=== PATIENT | male | born 1935 | race Caucasian/White ===

== ENCOUNTER 2019-08-03 09:45 | Inpatient (IN) ==
[2019-08-03] MEDS ORDERED: ASPIRIN 325 MG TABLET PO STA (10:26)
[2019-08-03] MEDS ORDERED: ALUM/MAG/SIMETH/LIDO VISC 1:1 30 ML BOTTLE PO STA (10:26)
[2019-08-03 10:31] LABS: Basophils % 0.5 % (0.0-0.8); Eosinophils # 0.2 10*3/uL (0.0-0.87); Eosinophils % 4.4 % (0.00-10.9); Hematocrit 35.2 VOL% (42.0-52.0); Hemoglobin 11.5 GM/DL (14.0-18.0); Immature Granulocytes % 1.1 %; Immature Granulocytes Absolute 0.04 #; Lymphocytes # 0.1 10*3/uL (1.4-4.0); Lymphocytes % 2.5 % (21.2-54.2); Mean Corpuscular HGB Conc 32.7 GM/DL (32-36); Mean Corpuscular Volume 90.5 FL (87-102); Mean Platelet Volume 10.3 FL (9.6-12.0); Monocytes % 1.4 % (1.7-12.7); Neutrophils % 90.1 % (38.7-73.9); Platelet Count 118 T/CUMM (130-400); Red Blood Count 3.89 MC/CUMM (3.8-5.5); Red Cell Distribution Width 17.3 % (9.3-17.3); White Blood Count 3.7 T/CUMM (4-12)
[2019-08-03 10:39] LABS: Partial Thromboplastin Time 25.4 SECS (20.8-36.0)
[2019-08-03 10:46] LABS: Albumin 2.7 G/DL (3.4-5.0); Calcium 7.7 MG/DL (8.5-10.1); Osmolality,Calculated 273.1 MOS/KG (273-304); Total Protein 5.2 G/DL (6.4-8.3)
[2019-08-03 10:49] LABS: Band Neutrophils 1 % (0-10); Eosinophils 4 % (0-10); Hypochromasia 1+; Lymphocytes 2 % (20-55); Ovalocytes Slight; Platelet Estimate Decreased; Segmented Neutrophils 91 % (50-85); Total Cells Counted 100
[2019-08-03 10:50] LABS: Macrocytosis Slight
[2019-08-03] MEDS ORDERED: ENOXAPARIN 100 MG/ML SYRINGE SUBCUT STA (10:51)
[2019-08-03] MEDS ORDERED: NITROGLYCERIN 2% OINT 1 INCH/GM PACK TOP STA (10:52)
[2019-08-03] MEDS ORDERED: SODIUM CHLORIDE 0.9% 500 ML IV STA (11:42)
[2019-08-03] MEDS ORDERED: ALBUTEROL 2.5 MG/3 ML NEB RESP TX PRN (11:53)
[2019-08-03] MEDS ORDERED: MECLIZINE 25 MG TABLET PO PRN (11:53)
[2019-08-03] MEDS: NITROGLYCERIN 2% OINT 1 INCH/GM PACK TOP SCH ×3 (15:04→23:47)
[2019-08-03] MEDS ORDERED: ALUM/MAG/SIMETH/LIDO VISC 1:1 30 ML BOTTLE PO ONE ×2 (17:53→22:30)
[2019-08-03] MEDS ORDERED: MORPHINE 4 MG/1 ML VIAL IV PRN (17:53)
[2019-08-03] MEDS: THEOPHYLLINE ER 300 MG TABLET PO SCH (20:50)
[2019-08-03] MEDS: ROSUVASTATIN 20 MG TABLET PO SCH (20:50)
[2019-08-03] MEDS ORDERED: ONDANSETRON 4 MG/2 ML VIAL IV PRN (23:08)
[2019-08-03] MEDS: ACETAMINOPHEN 325 MG TABLET PO SCH (23:19)
[2019-08-03] MEDS: GABAPENTIN 100 MG CAPSULE PO SCH (23:19)
[2019-08-03] MEDS: ENOXAPARIN 80 MG/0.8 ML SYRINGE SUBCUT SCH (23:19)
[2019-08-03] MEDS: traMADol 50 MG TABLET PO SCH (23:19)
[2019-08-03] MEDS: PANTOPRAZOLE 40 MG TABLET PO SCH (23:20)
[2019-08-04 04:35] LABS: Basophils % 0.4 % (0.0-0.8); Eosinophils # 0.2 10*3/uL (0.0-0.87); Eosinophils % 6.7 % (0.00-10.9); Hematocrit 32.5 VOL% (42.0-52.0); Hemoglobin 10.4 GM/DL (14.0-18.0); Immature Granulocytes % 1.3 %; Immature Granulocytes Absolute 0.03 #; Lymphocytes # 0.1 10*3/uL (1.4-4.0); Lymphocytes % 4.2 % (21.2-54.2); Mean Corpuscular Volume 90.5 FL (87-102); Mean Platelet Volume 10.5 FL (9.6-12.0); Neutrophils % 82.4 % (38.7-73.9); Platelet Count 121 T/CUMM (130-400); Red Blood Count 3.59 MC/CUMM (3.8-5.5); White Blood Count 2.4 T/CUMM (4-12)
[2019-08-04 05:00] LABS: Albumin 2.4 G/DL (3.4-5.0); Band Neutrophils 1 % (0-10); Bilirubin,Total 1.4 MG/DL (0.2-1.0); Calcium 7.5 MG/DL (8.5-10.1); Eosinophils 8 % (0-10); Hypochromasia 1+; Lymphocytes 2 % (20-55); Osmolality,Calculated 270.1 MOS/KG (273-304); Platelet Estimate Normal; Risk Ratio 4.12; Segmented Neutrophils 86 % (50-85); Total Cells Counted 100; Total Protein 4.9 G/DL (6.4-8.3)
[2019-08-04] MEDS: NITROGLYCERIN 2% OINT 1 INCH/GM PACK TOP SCH ×3 (05:40→17:48)
[2019-08-04 08:40] LABS: CKMB % 8.1 %
[2019-08-04 08:42] LABS: Troponin I 18.2 NG/ML (0.00-0.045)
[2019-08-04] MEDS ORDERED: ASPIRIN EC 81 MG TABLET PO SCH (09:00)
[2019-08-04] MEDS ORDERED: DIAZEPAM 5 MG TABLET PO ONE (09:10)
[2019-08-04] MEDS ORDERED: diphenhydrAMINE CAP 25 MG CAPSULE PO ONE (09:10)
[2019-08-04] MEDS: traMADol 50 MG TABLET PO SCH ×2 (09:16→20:33)
[2019-08-04] MEDS: ACETAMINOPHEN 325 MG TABLET PO SCH ×2 (09:16→20:33)
[2019-08-04] MEDS: predniSONE 10 MG TABLET PO SCH ×2 (09:16→17:48)
[2019-08-04] MEDS: THEOPHYLLINE ER 300 MG TABLET PO SCH ×2 (09:16→20:33)
[2019-08-04] MEDS: TAMSULOSIN 0.4 MG CAPSULE PO SCH ×2 (09:16→17:48)
[2019-08-04] MEDS: DILTIAZEM CD 120 MG CAPSULE PO SCH (09:16)
[2019-08-04] MEDS: GABAPENTIN 100 MG CAPSULE PO SCH ×3 (09:16→20:33)
[2019-08-04] MEDS: PANTOPRAZOLE 40 MG TABLET PO SCH ×2 (09:16→20:33)
[2019-08-04] MEDS: ENOXAPARIN 80 MG/0.8 ML SYRINGE SUBCUT SCH (09:17)
[2019-08-04] MEDS: SODIUM CHLORIDE 0.9% 1,000 ML IV SCH ×2 (09:42→19:50)
[2019-08-04] MEDS ORDERED: LIDOCAINE 1% 20 ML VIAL ONE (09:59)
[2019-08-04] MEDS ORDERED: fentaNYL 100 MCG/2 ML VIAL ONE (09:59)
[2019-08-04] MEDS ORDERED: MIDAZOLAM 2 MG/2 ML VIAL ONE (09:59)
[2019-08-04] MEDS ORDERED: HYDROmorphone 2 MG/1 ML VIAL ONE (10:36)
[2019-08-04] MEDS ORDERED: TIROFIBAN 5,000 MCG/100 ML PREMIX IV ONE (10:51)
[2019-08-04] MEDS ORDERED: HEPARIN 5,000 UNIT/1 ML VIAL ONE (10:58)
[2019-08-04] MEDS ORDERED: ASPIRIN CHEW 81 MG TABLET PO ONE (11:05)
[2019-08-04 14:13] LABS: Troponin I 18.7 NG/ML (0.00-0.045)
[2019-08-04] MEDS: ROSUVASTATIN 20 MG TABLET PO SCH (20:33)
[2019-08-04 20:44] LABS: CKMB % 7.9 %
[2019-08-04 20:49] LABS: Troponin I 16.1 NG/ML (0.00-0.045)
[2019-08-05] MEDS: NITROGLYCERIN 2% OINT 1 INCH/GM PACK TOP SCH ×4 (01:08→17:20)
[2019-08-05] MEDS: SODIUM CHLORIDE 0.9% 1,000 ML IV SCH (01:09)
[2019-08-05 04:48] LABS: Eosinophils % 1.1 % (0.00-10.9); Hematocrit 29.1 VOL% (42.0-52.0); Hemoglobin 9.3 GM/DL (14.0-18.0); Immature Granulocytes % 2.7 %; Immature Granulocytes Absolute 0.05 #; Lymphocytes # 0.1 10*3/uL (1.4-4.0); Lymphocytes % 2.7 % (21.2-54.2); Mean Corpuscular Volume 89.8 FL (87-102); Mean Platelet Volume 10.1 FL (9.6-12.0); Monocytes % 9.8 % (1.7-12.7); Neutrophils % 83.7 % (38.7-73.9); Platelet Count 126 T/CUMM (130-400); Red Blood Count 3.24 MC/CUMM (3.8-5.5); Red Cell Distribution Width 16.9 % (9.3-17.3); White Blood Count 1.8 T/CUMM (4-12)
[2019-08-05 05:09] LABS: Eosinophils 2 % (0-10); Lymphocytes 2 % (20-55); Segmented Neutrophils 87 % (50-85); Total Cells Counted 100
[2019-08-05 05:10] LABS: Hypochromasia 1+; Ovalocytes Slight; Platelet Estimate Normal
[2019-08-05 06:10] LABS: Albumin 2.3 G/DL (3.4-5.0); Bilirubin,Total 0.8 MG/DL (0.2-1.0); Calcium 7.6 MG/DL (8.5-10.1); Osmolality,Calculated 270.1 MOS/KG (273-304); Total Protein 4.6 G/DL (6.4-8.3)
[2019-08-05] MEDS: ACETAMINOPHEN 325 MG TABLET PO SCH ×2 (08:52→20:45)
[2019-08-05] MEDS: traMADol 50 MG TABLET PO SCH ×2 (08:52→20:39)
[2019-08-05] MEDS: ASPIRIN 325 MG TABLET PO SCH (08:52)
[2019-08-05] MEDS: PANTOPRAZOLE 40 MG TABLET PO SCH ×2 (08:53→20:39)
[2019-08-05] MEDS: THEOPHYLLINE ER 300 MG TABLET PO SCH ×2 (08:53→20:38)
[2019-08-05] MEDS: GABAPENTIN 100 MG CAPSULE PO SCH ×3 (08:54→20:38)
[2019-08-05] MEDS: TAMSULOSIN 0.4 MG CAPSULE PO SCH (08:54)
[2019-08-05] MEDS: DILTIAZEM CD 120 MG CAPSULE PO SCH (08:54)
[2019-08-05] MEDS: predniSONE 10 MG TABLET PO SCH (08:56)
[2019-08-05] MEDS ORDERED: BISACODYL 5 MG TABLET PO ONE (20:20)
[2019-08-05] MEDS: ROSUVASTATIN 20 MG TABLET PO SCH (20:38)
[2019-08-06] MEDS: NITROGLYCERIN 2% OINT 1 INCH/GM PACK TOP SCH ×2 (00:33→05:26)
[2019-08-06 04:43] LABS: Basophils % 0.3 % (0.0-0.8); Eosinophils # 0.1 10*3/uL (0.0-0.87); Eosinophils % 2.4 % (0.00-10.9); Hematocrit 27.2 VOL% (42.0-52.0); Immature Granulocytes % 0.7 %; Immature Granulocytes Absolute 0.02 #; Lymphocytes # 0.1 10*3/uL (1.4-4.0); Lymphocytes % 2.7 % (21.2-54.2); Mean Corpuscular HGB Conc 33.1 GM/DL (32-36); Mean Corpuscular Volume 86.9 FL (87-102); Mean Platelet Volume 9.9 FL (9.6-12.0); Monocytes % 11.6 % (1.7-12.7); NRBC # 0.02 10*3/uL; Neutrophils % 82.3 % (38.7-73.9); Platelet Count 149 T/CUMM (130-400); Red Blood Count 3.13 MC/CUMM (3.8-5.5); Red Cell Distribution Width 16.8 % (9.3-17.3); White Blood Count 2.9 T/CUMM (4-12)
[2019-08-06 05:03] LABS: Albumin 2.4 G/DL (3.4-5.0); Bilirubin,Total 0.5 MG/DL (0.2-1.0); Calcium 7.8 MG/DL (8.5-10.1); Osmolality,Calculated 270.1 MOS/KG (273-304); Total Protein 4.9 G/DL (6.4-8.3)
[2019-08-06 05:08] LABS: Eosinophils 1 % (0-10); Nucleated Red Blood Cells 2 (0-5); Segmented Neutrophils 88 % (50-85); Total Cells Counted 100
[2019-08-06 05:09] LABS: Hypochromasia 1+; Ovalocytes Slight; Platelet Estimate Adequate
[2019-08-06] MEDS ORDERED: LACTATED RINGERS 1,000 ML IV SCH (08:00)
[2019-08-06] MEDS: predniSONE 10 MG TABLET PO SCH (09:49)
[2019-08-06] MEDS: ASPIRIN 325 MG TABLET PO SCH (09:49)
[2019-08-06] MEDS: TAMSULOSIN 0.4 MG CAPSULE PO SCH (09:49)
[2019-08-06] MEDS: DILTIAZEM CD 120 MG CAPSULE PO SCH (09:49)
[2019-08-06] MEDS: GABAPENTIN 100 MG CAPSULE PO SCH ×3 (09:50→21:30)
[2019-08-06] MEDS: PANTOPRAZOLE 40 MG TABLET PO SCH ×2 (09:50→21:29)
[2019-08-06] MEDS: ACETAMINOPHEN 325 MG TABLET PO SCH ×2 (09:51→21:30)
[2019-08-06] MEDS: traMADol 50 MG TABLET PO SCH ×2 (09:51→21:29)
[2019-08-06] MEDS: THEOPHYLLINE ER 300 MG TABLET PO SCH ×2 (09:51→21:30)
[2019-08-06] MEDS ORDERED: PROPOFOL 200 MG/20 ML VIAL IV ONE (14:00)
[2019-08-06] MEDS ORDERED: PHENYLEPHRINE 1 MG/10 ML SYRINGE IV ONE (14:00)
[2019-08-06] MEDS ORDERED: ETOMIDATE 20 MG/10 ML VIAL IV ONE (14:00)
[2019-08-06] MEDS ORDERED: LIDOCAINE 100 MG/5 ML SYRINGE ONE (14:00)
[2019-08-06] MEDS: ROSUVASTATIN 20 MG TABLET PO SCH (21:29)
[2019-08-07 06:35] LABS: Basophils % 0.6 % (0.0-0.8); Eosinophils # 0.1 10*3/uL (0.0-0.87); Eosinophils % 6.1 % (0.00-10.9); Hematocrit 28.7 VOL% (42.0-52.0); Hemoglobin 9.4 GM/DL (14.0-18.0); Immature Granulocytes % 1.1 %; Immature Granulocytes Absolute 0.02 #; Lymphocytes # 0.1 10*3/uL (1.4-4.0); Mean Corpuscular HGB Conc 32.8 GM/DL (32-36); Mean Corpuscular Volume 87.5 FL (87-102); Mean Platelet Volume 10.3 FL (9.6-12.0); Monocytes % 13.4 % (1.7-12.7); Neutrophils % 73.8 % (38.7-73.9); Platelet Count 175 T/CUMM (130-400); Red Blood Count 3.28 MC/CUMM (3.8-5.5); Red Cell Distribution Width 17.3 % (9.3-17.3); White Blood Count 1.8 T/CUMM (4-12)
[2019-08-07 06:52] LABS: Albumin 2.3 G/DL (3.4-5.0); Bilirubin,Total 0.5 MG/DL (0.2-1.0); Calcium 7.8 MG/DL (8.5-10.1); Osmolality,Calculated 268.8 MOS/KG (273-304)
[2019-08-07 06:57] LABS: Eosinophils 8 % (0-10); Hypochromasia 1+; Lymphocytes 4 % (20-55); Nucleated Red Blood Cells 2 (0-5); Ovalocytes Slight; Platelet Estimate Adequate; Segmented Neutrophils 81 % (50-85); Total Cells Counted 100
[2019-08-07] MEDS ORDERED: POTASSIUM CHLORIDE 20 MEQ TABLET PO ONE (09:12)
[2019-08-07] MEDS: THEOPHYLLINE ER 300 MG TABLET PO SCH (09:52)
[2019-08-07] MEDS: ASPIRIN 325 MG TABLET PO SCH (09:52)
[2019-08-07] MEDS: ACETAMINOPHEN 325 MG TABLET PO SCH (09:53)
[2019-08-07] MEDS: TAMSULOSIN 0.4 MG CAPSULE PO SCH (09:53)
[2019-08-07] MEDS: traMADol 50 MG TABLET PO SCH (09:53)
[2019-08-07] MEDS: PANTOPRAZOLE 40 MG TABLET PO SCH (09:53)
[2019-08-07] MEDS: predniSONE 10 MG TABLET PO SCH (09:53)
[2019-08-07] MEDS: GABAPENTIN 100 MG CAPSULE PO SCH ×2 (09:54→14:42)
[2019-08-07] MEDS: DILTIAZEM CD 120 MG CAPSULE PO SCH (10:02)
[2019-08-07] MEDS ORDERED: SODIUM CHLORIDE 0.9% 500 ML IV ONE (12:19)
[2019-08-07] MEDS ORDERED: HYDROCORTISONE 100 MG VIAL IV ONE (12:26)
[2019-08-07] MEDS ORDERED: FLUDROCORTISONE 0.1 MG TABLET PO SCH (12:30)
[2019-08-07] MEDS: POTASSIUM CHLORIDE 20 MEQ TABLET PO PRN ×2 (12:48→14:42)
[2019-08-07 14:46] VITALS: BP 116/68
== END 2019-08-07 16:35 | disposition home or self-care (01) | DRG 251 ==
LOC: EDUNIT# → EDBD → N.ED 09:45 → N.EDINP 09:45 → SUATTDRO 11:18 → N.TELES 11:32 → SUATTDRO 08-04 10:14
PROVIDERS: ADMIT Internal Medicine; ATTEND Internal Medicine
PROC: CLCCHCL (ICD-10-PCS; 2019-08-04 10:45)